=== PATIENT | female | born 1995 | race Caucasian/White ===

== ENCOUNTER 2022-04-20 09:45 | Emergency (ER) | payer OTHER ==
[~2022-04-20] VITALS: Ht 157.5 cm; Wt 80.5 kg
[2022-04-20 10:02] VITALS: BP 142/82
[2022-04-20 10:41] LABS: APPEARANCE,URINE HAZY (CLEAR); BILIRUBIN,URINE NEGATIVE (NEGATIVE); GLUCOSE, URINE (UA) NEGATIVE (NEGATIVE); KETONES,URINE NEGATIVE (NEGATIVE); LEUKOCYTE ESTERASE ,URINE NEGATIVE (NEGATIVE); NITRATE,URINE NEGATIVE (NEGATIVE); OCCULT BLOOD,URINE NEGATIVE (NEGATIVE); PH,URINE 7.5 (5.0-8.0); PROTEIN,URINE NEGATIVE (NEGATIVE); SPECIFIC GRAVITIY, URINE 1.018 (1.003-1.030); UROBILINOGEN,URINE <=1.0 mg/dL (<=1.0)
[2022-04-20 10:52] LABS: BACTERIA,URINE Few /HPF (None Seen); RBC,URINE None Seen /HPF (0-2); WBC,URINE None Seen /HPF (0-5)
[2022-04-20] MEDS ORDERED: CefTRIAXone SODIUM 1 GM/VIAL IM ONE (13:45)
[2022-04-20] MEDS ORDERED: AZITHROMYCIN 500 MG TABLET PO ONE (13:45)
[2022-04-20] MEDS ORDERED: LIDOCAINE/PF 1% 2 ML VIAL IM ONE (13:45)
== END 2022-04-20 14:26 | disposition home or self-care (01) ==
LOC: EMS 09:51
DX: O23.591 Infection of other part of genital tract in pregnancy, first trimester (principal); Z3A.09 9 weeks gestation of pregnancy
CPT/HCPCS: 99285; 76801; 81001; 84703; 76817; 87491; 87591; 96372; J0696; J3490; Q9967